=== PATIENT | female | born 1960 | race Caucasian/White ===

== ENCOUNTER 2017-06-15 18:20 | Emergency (ER) | payer OTHER ==
[~2017-06-15] VITALS: Ht 172.7 cm; Wt 99.8 kg
[2017-06-15] MEDS ORDERED: VENL37.52 PO (18:51)
[2017-06-15] MEDS ORDERED: FEXO1TAB43 PO (18:51)
--- NOTE | 2017-06-15 18:57 | Diagnostic Imaging Report ---
EXAMINATION: Left hand radiographs, three views. COMPARISON: None. HISTORY: 56-year-old female, smashed hand. Pain and swelling of the middle finger. FINDINGS: There is soft tissue swelling at the level of the distal aspect of the third proximal phalanx. There is no identified acute fracture. There is no radiopaque foreign body. There is no dislocation. IMPRESSION: 1. Soft tissue swelling at the level of the distal aspect of the third proximal phalanx. 2. No identified acute fracture or dislocation. 3. No radiopaque foreign body. Dictated by: Dictated on workstation # [id number]
--- NOTE | 2017-06-15 18:58 | ED Upper Extremity ---
General Chief Complaint: Upper Extremity Stated Complaint: L MIDDLE FINGER Nursing Triage Note: PT CO OF SMASHING MIDDLE FINGER ON L HAND W HEAVY EQUIPMENT. FINGER SWOLLEN AND BRUISED Nursing Sepsis Screen: No Definite Risk History of Present Illness Date Seen by Provider: Jun 15, 2017 Time Seen by Provider: 18:54 Initial Comments Patient is a 56-year-old female who presents to the emergency room with complaints of dropping a heavy wooden plank onto her left middle finger just prior to arrival. She complains of pain and swelling to the finger. Onset: just prior to arrival Method of Injury: other (dropped a wooden plank) Modifying Factors: Improves With Cold Therapy, Improves With Immobilization Allergies and Home Medications Allergies Uncoded Allergies: ENVIROMENTAL (Allergy, Unknown, 06/15/17) Patient Home Medication List Home Medication List Reviewed: Yes Constitutional: no symptoms reported, see HPI EENTM: see HPI, no symptoms reported Respiratory: no symptoms reported, see HPI Cardiovascular: no symptoms reported, see HPI Gastrointestinal: no symptoms reported, see HPI Genitourinary: no symptoms reported, see HPI Musculoskeletal: see HPI, other (left middle finger pain and bruising.) Skin: no symptoms reported, see HPI Psychiatric/Neurological: No Symptoms Reported, See HPI Past Yvcteej-Idedcy-Ygxcgo Hx Patient Social History Alcohol Use: Rarely Uses Recreational Drug Use: No Smoking Status: Never a Smoker Recent Foreign Travel: No Contact w/Someone Who Travel: No Recent Infectious Disease Expo: No Physical Abuse: No Sexual Abuse: No Psychosocial Suicide Risk Score: 0 Physical Exam Vital Signs Vital Signs - First Documented 06/15/17 18:35 Temp 98.1 Pulse 85 Resp 18 Pulse Ox 99 Capillary Refill : Less Than 3 Seconds General Appearance: WD/WN, no apparent distress HEENT: PERRL/EOMI Neck: non-tender, full range of motion Cardiovascular: normal peripheral pulses, regular rate, rhythm, no edema, no gallop, no JVD, no murmur Respiratory: chest non-tender, lungs clear Gastrointestinal: normal bowel sounds, non tender Back: normal inspection, no CVA tenderness Shoulder: normal inspection, non-tender Elbow/Forearm: normal inspection, non-tender Wrist: Yes normal inspection, Yes non-tender Hand: Left, ecchymosis, swelling Neurologic/Tendon: normal sensation Neurologic/Psychiatric: alert, normal mood/affect, oriented x 3 Skin: normal color, warm/dry Lymphatic: no adenopathy (patient has adequate capillary refill and sensation to the left middle finger.) Progress/Results/Core Measures Results/Orders My Orders Orders - FREEMAN WILCOX APRN Hand, Left, 3 Views (06/15/17 18:42) Hydrocodone/Apap 5/325 Tablet (Lortab 5 (06/15/17 19:00) Vital Signs/I&O Vital Sign - Last 12Hours 06/15/17 18:35 Temp 98.1 Pulse 85 Resp 18 B/P (MAP) Pulse Ox 99 Departure Impression Impression: Primary Impression: CONTUSION OF LEFT MIDDLE FINGER W/O DAMAGE TO NAIL, INIT Disposition: HOME, SELF-CARE Condition: Stable/Unchanged Departure-Patient Inst. Decision time for Depature: 19:21 Referrals: NO,LOCAL PHYSICIAN (PCP) Primary Care Physician Patient Instructions: Contusion (DC) Add. Discharge Instructions: Continue to use ice to help with swelling and pain, You may take ibuprofen and Tylenol as needed for additional pain relief. Return back to the emergency room for any concerns as needed. All discharge instructions reviewed with patient and /or family. Voiced understanding. FREEMAN WILCOX APRN Jun 15, 2017 18:58
[2017-06-15] MEDS ORDERED: HYDROcodone/APAP 5 MG/325 MG (LORTAB) TAB PO ONE (19:00)
[2017-06-15 19:32] VITALS: BP 132/80
== END 2017-06-15 19:32 | disposition home or self-care (01) ==
LOC: EDUNIT# 18:20 → ER 18:22
DX: S60.032A Contusion of left middle finger without damage to nail, initial encounter (principal); W20.8XXA Other cause of strike by thrown, projected or falling object, initial encounter
CPT/HCPCS: 73130